=== PATIENT | male | born 1980 | race Asian ===

== ENCOUNTER 2019-07-27 09:16 | Outpatient (CLI) | payer MEDICARE, OTHER ==
[2019-07-27 09:54] LABS: BASOPHILS % (AUTO) 0.4 % (0-1); EOSINOPHILS % (AUTO) 0.5 % (0-6); HEMATOCRIT 48.1 % (42.0-52.0); HEMOGLOBIN 16.4 g/dl (14.0-17.9); LYMPHOCYTES # (AUTO) 1.1 X10'3 (1.1-4.8); MEAN CORPUSCULAR HEMOGLOBIN 29.5 PG (27.0-31.0); MEAN CORPUSCULAR HGB CONC 34.2 g/dL (33.0-36.5); MEAN CORPUSCULAR VOLUME 86.5 FL (78-98); MEAN PLATELET VOLUME 6.6 FL (7.4-10.4); MONOCYTES # (AUTO) 0.4 X10'3 (0-0.9); MONOCYTES % (AUTO) 7.3 % (2-12); NEUTROPHILS # (AUTO) 3.7 X10'3 (1.8-7.7); NEUTROPHILS % (AUTO) 70.8 % (42-75); PLATELET COUNT 307 X10'3 (140-440); RED BLOOD COUNT 5.56 X10'6 (4.70-6.10); RED CELL DISTRIBUTION WIDTH 13.3 % (11.5-14.5); WHITE BLOOD COUNT 5.2 X10'3 (4.5-11.0)
[2019-07-27 10:04] LABS: PARTIAL THROMBOPLASTIN TIME 27 SECONDS (22-32)
[2019-07-27 10:06] LABS: ALANINE AMINOTRANSFERASE 40 U/L (12-78); ALBUMIN/GLOBULIN RATIO 1.1 (1.1-1.5); ALKALINE PHOSPHATASE 82 IU/L (46-116); ANION GAP 5 (8-16); ASPARTATE AMINO TRANSFERASE 14 U/L (10-37); BLOOD UREA NITROGEN 13 MG/DL (7-18); BUN/CREATININE RATIO 12.9 (5.4-32.0); CALCIUM 8.9 MG/DL (8.5-10.1); CHLORIDE 105 MMOL/L (99-107); CREATININE 1.01 MG/DL (0.60-1.10); GLUCOSE 94 MG/DL (70-104); POTASSIUM 4.1 MMOL/L (3.5-5.1); SODIUM 143 MMOL/L (135-145); TOTAL CARBON DIOXIDE 32.8 MMOL/L (24-32); TOTAL PROTEIN 7.8 G/DL (6.4-8.2); eGFR 82 ML/MIN
== END 2019-07-27 23:59 | disposition home or self-care (01) ==
LOC: LAB 09:16
PROVIDERS: ATTEND Otolaryngology
DX: D69.1 Qualitative platelet defects (principal); Z87.891 Personal history of nicotine dependence
CPT/HCPCS: 36415; 80053; 85025; 85576; 85610; 85730

== ENCOUNTER 2021-09-21 15:33 | Emergency (ER) | payer OTHER ==
[~2021-09-21] VITALS: Ht 188 cm; Wt 136.4 kg
[2021-09-21 15:34] VITALS: BP 154/106
[2021-09-21] MEDS ORDERED: normal saline 1000ML IV soln IVB ONE (15:50)
[2021-09-21] MEDS ORDERED: naproxen 500mg tablet PO ONE (15:50)
[2021-09-21] MEDS ORDERED: iohexol 300mg/ml 100ml inj. ONE (15:59)
== END 2021-09-21 17:13 | disposition home or self-care (01) ==
LOC: ER 15:33
DX: S76.912A Strain of unspecified muscles, fascia and tendons at thigh level, left thigh, initial encounter (principal); M79.652 Pain in left thigh; X58.XXXA Exposure to other specified factors, initial encounter; Y93.89 Activity, other specified; Y92.89 Other specified places as the place of occurrence of the external cause; Y99.8 Other external cause status
CPT/HCPCS: 73700; 99284; Q9967

== ENCOUNTER 2024-05-16 09:42 | Emergency (ER) | payer OTHER ==
[~2024-05-16] VITALS: Ht 188 cm; Wt 127.0 kg
[2024-05-16 10:08] VITALS: BP 141/88; PULSE 62; RESP 16; TEMP 98.5; O2SAT 97
== END 2024-05-16 11:06 | disposition home or self-care (01) ==
LOC: ER 09:42
DX: S86.812A Strain of other muscle(s) and tendon(s) at lower leg level, left leg, initial encounter (principal); X58.XXXA Exposure to other specified factors, initial encounter; Y93.89 Activity, other specified; Y92.89 Other specified places as the place of occurrence of the external cause; Y99.8 Other external cause status
CPT/HCPCS: 99281

== ENCOUNTER 2024-08-05 05:39 | Day surgery (SDC) | payer OTHER ==
[2024-08-02 11:37] LABS: BASOPHILS % (AUTO) 0.6 % (0-1); EOSINOPHILS # (AUTO) 0.1 X10'3 (0-0.9); EOSINOPHILS % (AUTO) 2.3 % (0-6); LYMPHOCYTES # (AUTO) 1.6 X10'3 (1.1-4.8); LYMPHOCYTES % (AUTO) 25.2 % (21-51); MEAN CORPUSCULAR HEMOGLOBIN 30.1 PG (27.0-31.0); MEAN CORPUSCULAR HGB CONC 34.1 g/dL (33.0-36.5); MEAN CORPUSCULAR VOLUME 88.3 FL (78-98); MEAN PLATELET VOLUME 6.5 FL (7.4-10.4); MONOCYTES # (AUTO) 0.4 X10'3 (0-0.9); MONOCYTES % (AUTO) 5.9 % (2-12); NEUTROPHILS # (AUTO) 4.1 X10'3 (1.8-7.7); PRE OP HEMOGLOBIN 15.7 g/dL (14.0-17.9); PRE OP PLATELET COUNT 264 X10'3 (140-440); PRE OP WHITE BLOOD COUNT 6.3 10'3 (4.8-10.8); RED BLOOD COUNT 5.21 X10'6 (4.70-6.10); RED CELL DISTRIBUTION WIDTH 13.3 % (11.5-14.5)
[2024-08-02 11:48] LABS: ALBUMIN/GLOBULIN RATIO 1.2 (1.1-1.5); ALKALINE PHOSPHATASE 63 IU/L (46-116); BLOOD UREA NITROGEN 11 MG/DL (7-18); BUN/CREATININE RATIO 11.3 (10.0-20.0); CALCIUM 8.8 MG/DL (8.5-10.1); CHLORIDE 105 MMOL/L (99-107); CREATININE 0.97 MG/DL (0.60-1.10); PRE OP ALT 45 U/L (30-65); PRE OP ANION GAP 3 (8-16); PRE OP AST 24 U/L (10-37); PRE OP BILIRUB, TOTAL 0.8 MG/DL (0.0-1.0); PRE OP GLUCOSE 92 MG/DL (70-104); PRE OP POTASSIUM 3.8 MMOL/L (3.4-5.1); PRE OP SODIUM 140 MMOL/L (135-145); TOTAL CARBON DIOXIDE 31.7 MMOL/L (24-32); TOTAL PROTEIN 7.3 G/DL (6.4-8.2); eGFR 84 ML/MIN
[2024-08-02 11:58] LABS: BILIRUBIN,URINE NEGATIVE (Neg); CLARITY,URINE CLEAR (Clear); COLOR,URINE YELLOW (Yellow); GLUCOSE, URINE NEGATIVE (Neg); KETONES,URINE NEGATIVE (Neg); LEUKOCYTE ESTERASE ,URINE NEGATIVE (Neg); NITRITES, URINE NEGATIVE (Neg); OCCULT BLOOD,URINE NEGATIVE (Neg); PH,URINE 6.5 (4.8-8.0); PROTEIN,URINE NEGATIVE (Neg); UROBILINOGEN,URINE 0.2 E.U/dL (0.2-1.0)
[2024-08-02 12:02] LABS: UA COLLECTION TYPE CLN CATCH MIDSTREAM
[2024-08-05] VITALS (9 sets, daily range): BP systolic 97–131; BP diastolic 62–84; PULSE 66–75; RESP 0–16; TEMP 97.3; O2SAT 67–99
[~2024-08-05] VITALS: Ht 188 cm; Wt 136.8 kg
[2024-08-05] MEDS: Cefazolin 3 GM/100ML NS IVPB 100 ML IV ONE (05:30)
[~2024-08-05 05:39] MED LIST: NO HOME MEDS
[2024-08-05] MEDS: famotidine 20mg tablet PO ONE (06:50)
[2024-08-05] MEDS: ringers solution, lacted 1,000 ML IV SCH ×2 (06:52→12:00)
[2024-08-05] MEDS ORDERED: bacitracin 15gm ointment TP ONE (07:12)
[2024-08-05] MEDS ORDERED: BUPIVAcaine 2.5mg/ml inj 50ml vial (contains preservative) ONE (07:12)
[2024-08-05] MEDS ORDERED: BUPIVAcaine 0.5% inj/PF 60 ML ONE (07:14)
[2024-08-05] MEDS ORDERED: dexmedetomidine 200mcg/2ml inj. IV ONE (07:14)
[2024-08-05] MEDS ORDERED: BUPIVACAINE liposomal/PF 13.3 MG/ML vial IM ONE (07:14)
[2024-08-05] MEDS ORDERED: midazolam 1 mg/ML 2ml injection ONE (07:19)
[2024-08-05] MEDS ORDERED: propofol inj 20 ML IV ONE ×2 (07:19)
[2024-08-05] MEDS ORDERED: LIDOcaine 2% (20mg/ml) 5ml vial ONE (07:19)
[2024-08-05] MEDS ORDERED: fentaNYL/PF 50MCG/1 ML 2ML syringe ONE (07:19)
[2024-08-05] MEDS ORDERED: labetalol 20mg/4ml (5mg/ml) syringe IV PRN (07:35)
[2024-08-05] MEDS ORDERED: hydrALAZINE 20mg/ml inj. IV PRN (07:35)
[2024-08-05] MEDS ORDERED: morphine 4 MG/ML inj SYRINge IV PRN (07:35)
[2024-08-05] MEDS ORDERED: ondansetron/PF 4mg/2ml inj IV PRN (07:35)
[2024-08-05] MEDS ORDERED: sevoflurane 250ml liquid IH ONE (07:35)
[2024-08-05] MEDS ORDERED: morphine 2 MG/ML inj. syringe IV PRN (07:35)
[2024-08-05] MEDS ORDERED: fentaNYL/PF 50MCG/1 ML 2ML syringe IV PRN ×2 (07:35)
[2024-08-05] MEDS ORDERED: dexamethasone sod phosphate 4mg/ml inj. ONE (08:02)
[2024-08-05] MEDS ORDERED: ondansetron/PF 4mg/2ml inj ONE (08:02)
[2024-08-05] MEDS ORDERED: acetaminophen 1,000mg/100ml IV 100 ML IV ONE (08:02)
== END 2024-08-05 13:30 | disposition home or self-care (01) ==
LOC: PAS 05:39
PROVIDERS: ATTEND Podiatrist Foot & Ankle Surgery
DX: M25.372 Other instability, left ankle (principal); M76.72 Peroneal tendinitis, left leg; M25.472 Effusion, left ankle; G89.18 Other acute postprocedural pain; E66.9 Obesity, unspecified; K21.9 Gastro-esophageal reflux disease without esophagitis; F43.10 Post-traumatic stress disorder, unspecified; G47.33 Obstructive sleep apnea (adult) (pediatric); Z87.891 Personal history of nicotine dependence; Z79.1 Long term (current) use of non-steroidal anti-inflammatories (NSAID); Z79.82 Long term (current) use of aspirin; Z79.891 Long term (current) use of opiate analgesic; Z90.49 Acquired absence of other specified parts of digestive tract; Z98.890 Other specified postprocedural states; Z68.34 Body mass index [BMI] 34.0-34.9, adult; Z80.9 Family history of malignant neoplasm, unspecified
CPT/HCPCS: 27635; 27698; 27829; 28238; 29999; 36415; 64445; 64447; 73600; 80053; 81003; 82948; 85025; A6222; C1713; C9290; J0131; J0690; J1100; J2250; J2405; J2704; J3010; J3490; J7120; Z7506; Z7508; Z7512; 76000; A4615; A4618; A6253; A6449; A7000